=== PATIENT | male | born 1950 | race Caucasian/White ===

== ENCOUNTER 2017-09-08 08:08 | Day surgery (SDC) | payer MEDICARE, BC ==
[~2017-09-08 08:08] MED LIST: Midazolam 1 MG/ML 2 ML SDV ONE; Propofol 200 MG/20 ML SDV ONE; fentaNYL 100 MCG/2 ML SDV ONE
[2017-09-08] MEDS ORDERED: Dextrose 5%-Lactated Ringers 1,000 ML IV SCH (09:30)
[2017-09-08 12:51] VITALS: BP 142/75
--- NOTE | 2017-09-09 11:39 | OR ---
DATE OF PROCEDURE: 09/08/2017 PREOPERATIVE DIAGNOSIS: Indications for screening colonoscopy. POSTOPERATIVE DIAGNOSIS: Normal screening colonoscopy. OPERATIVE PROCEDURE: Flexible colonoscopy. ANESTHESIA: IV sedation. INDICATIONS FOR PROCEDURE: A 67-year-old presenting for followup screening colonoscopy. Plan is to proceed with a colonoscopy with biopsies and/or polypectomy as indicated. Potential risks including bleeding and perforation were discussed, and the patient wishes to proceed. DETAILS OF PROCEDURE: The patient was taken to the operating room and placed in a left lateral decubitus position. IV sedation was administered, after which the initial digital rectal exam was performed and was unremarkable. Colonoscope was then passed into the rectum with retroflexion revealing uncomplicated hemorrhoidal columns. The scope was eventually passed to the level of the cecum. The prep was fair. There was a moderate amount of liquid stool present, but the vast majority of the surfaces were satisfactorily visualized. To that level, there were no abnormalities noted. Specifically, there were no diverticula, no areas of colitis, no polyps, or other signs of neoplasia. The above findings were reconfirmed, the scope was withdrawn, and the procedure then concluded. The patient was taken to the recovery room in a satisfactory condition. With the above findings and lack of any family history of colon neoplasia, the recommendation would be to repeat the colonoscopy in 10 years. Santiago Arnold MD /[id number]
== END 2017-09-08 13:05 | disposition home or self-care (01) ==
LOC: JP.SDS 08:08
PROVIDERS: ATTEND Surgery
DX: Z12.11 Encounter for screening for malignant neoplasm of colon (principal); I10 Essential (primary) hypertension; E78.5 Hyperlipidemia, unspecified; Z88.1 Allergy status to other antibiotic agents; Z88.8 Allergy status to other drugs, medicaments and biological substances
CPT/HCPCS: G0121; J2250; J2704; J3010; J7042

== ENCOUNTER 2018-11-05 05:41 | Day surgery (SDC) | payer BC, MEDICARE ==
[2018-11-05] MEDS ORDERED: Propofol 200 MG/20 ML SDV ONE (07:03)
[2018-11-05] MEDS ORDERED: fentaNYL 100 MCG/2 ML SDV ONE (07:03)
[2018-11-05] MEDS ORDERED: Midazolam 1 MG/ML 2 ML SDV ONE (07:03)
[2018-11-05] MEDS ORDERED: Dextrose 5%-Lactated Ringers 1,000 ML IV SCH (07:30)
[2018-11-05 08:54] VITALS: BP 137/83
--- NOTE | 2018-11-09 15:15 | OR ---
DATE OF PROCEDURE: 11/05/2018 SURGEON: Santiago Arnold MD PREOPERATIVE DIAGNOSIS: History of Moody's esophagus. POSTOPERATIVE DIAGNOSES: 1. History of Moody's esophagus with small hiatal hernia and minimal inflammation at esophagogastric junction. 2. Slight reddening of antrum. PROCEDURE: Esophagogastroduodenoscopy with: 1. Biopsy of esophagogastric junction for histologic evaluation. 2. Biopsies of antrum for CLOtest. ANESTHESIA: IV sedation. INDICATIONS FOR PROCEDURE: A 68-year-old, presenting for followup endoscopy for surveillance of his Moody's esophagus. He presently is on Protonix 40 mg a day and has good symptoms control. Plan is to proceed with upper GI endoscopy with biopsies as indicated. Potential risks including bleeding and perforation were discussed, and the patient wishes to proceed. DETAILS OF PROCEDURE: The patient was taken to the operating room and placed in a left lateral decubitus position. IV sedation was administered, after which the upper GI endoscope was passed orally through the length of the esophagus into the stomach with retroflexion view of the fundus, thereafter through the pyloric channel and into the proximal duodenum. Findings included normal hypopharynx, larynx, upper esophageal sphincter, and esophageal body. Close to EG junction, there was some upward extension of the gastroesophageal junction mucosal line above the upper gastric folds, consistent with Moody's esophagus, but there is overall very minimal inflammation and only a small hiatal hernia present. No plaquing or stricturing or other signs of neoplasia were seen. Within the stomach, there was some mild redness in the antrum. No erosions or ulcers in the pyloric channel. Duodenum to the junction of the third and fourth portions was unremarkable. At this point, biopsies were obtained from the antrum and sent for CLOtest for H. pylori. Multiple biopsies were then obtained from esophagogastric junction and sent for histologic evaluation. Minimal bleeding from the biopsy sites was seen and the procedure was then concluded. Recommendation will be to repeat the upper endoscopy in 2 years, unless we are seeing a progression towards dysplasia within the Moody's esophagus. Otherwise, continue with the present medical management. Santiago Arnold MD /[id number]
== END 2018-11-05 09:04 | disposition home or self-care (01) ==
LOC: JP.SDS 05:41
PROVIDERS: ATTEND Surgery
DX: K22.70 Barrett's esophagus without dysplasia (principal); K21.0 Gastro-esophageal reflux disease with esophagitis; K44.9 Diaphragmatic hernia without obstruction or gangrene; K31.89 Other diseases of stomach and duodenum; I10 Essential (primary) hypertension; Z88.0 Allergy status to penicillin; Z88.8 Allergy status to other drugs, medicaments and biological substances; Z79.899 Other long term (current) drug therapy
CPT/HCPCS: 43239; 87081; J2250; J2704; J3010; J7042; 88305

== ENCOUNTER 2020-09-29 07:27 | Day surgery (SDC) | payer MEDICARE ==
[2020-09-29] MEDS ORDERED: Sodium Chloride 0.9% 1,000 ML IV SCH (08:00)
[2020-09-29 10:21] VITALS: BP 124/72; PULSE 65
--- NOTE | 2020-09-29 15:21 | OR ---
DATE OF PROCEDURE: 09/29/2020 SURGEON: Cholo Azevedo MD PROCEDURE: Esophagogastroduodenoscopy. FINDINGS: 1. Gastric polyps, multiple, 2 biopsied for pathological purposes. 2. Biopsies of the GE junction due to history of Moody's esophagus, no significant inflammation noted on exam today. COMPLICATIONS: None. [employer]ULT [employer]: None. PREOPERATIVE DIAGNOSIS: History of Moody esophagus. POSTOPERATIVE DIAGNOSIS: History of Moody"s esophagus. RISKS: Risks, benefits, alternatives, and limitations including but not limited to infection, bleeding, perforation, false positives, and false negatives were explained to the patient who wished to proceed. PROCEDURE IN DETAIL: The patient was placed in left lateral decubitus position. The EGD scope was introduced and advanced atraumatically to the second part of the duodenum. No evidence of old or new blood. No masses. The patient had multiple small polyps noted in the gastric antrum. Two of these were removed for pathological purposes. No ulceration. The GE junction had a fairly normal Z-line. There was no protruding plaque-like lesions or salmon-colored areas concerning for Moody or reflux. Nonetheless, this was biopsied in all 4 quadrants. The air was removed. The EGD scope was removed. The esophagus was inspected without abnormality. The patient tolerated the procedure well. Cholo Azevedo MD /[id number]
== END 2020-09-29 10:15 | disposition home or self-care (01) ==
LOC: JP.SDS 07:27
PROVIDERS: ATTEND Surgery
DX: K31.7 Polyp of stomach and duodenum (principal); K22.8 Other specified diseases of esophagus; I10 Essential (primary) hypertension; E78.00 Pure hypercholesterolemia, unspecified; Z88.1 Allergy status to other antibiotic agents; Z88.8 Allergy status to other drugs, medicaments and biological substances
CPT/HCPCS: 88305; J2250; J2704; J3010; J7030

== ENCOUNTER 2023-03-27 08:02 | Day surgery (SDC) | payer MEDICARE ==
[2023-03-27] MEDS ORDERED: Dextrose 5%-Lactated Ringers 1,000 ML IV SCH (08:30)
[2023-03-27] MEDS ORDERED: Propofol 200 MG/20 ML SDV ONE (08:40)
[2023-03-27] MEDS ORDERED: fentaNYL 50 MCG/ML SDV ONE (08:40)
[2023-03-27 11:25] VITALS: BP 133/79; PULSE 53
== END 2023-03-27 11:28 | disposition home or self-care (01) ==
LOC: JP.SDS 08:02
PROVIDERS: ATTEND Surgery
DX: K44.9 Diaphragmatic hernia without obstruction or gangrene (principal); K29.50 Unspecified chronic gastritis without bleeding; K31.A0 Gastric intestinal metaplasia, unspecified; K22.70 Barrett's esophagus without dysplasia; I10 Essential (primary) hypertension; M19.90 Unspecified osteoarthritis, unspecified site
CPT/HCPCS: 43239; 87081; J2704; J3010; J7121; 88305